=== PATIENT | male | born 1990 | race Caucasian/White ===

== ENCOUNTER 2023-09-29 04:03 | Emergency (ER) | payer OTHER ==
[2023-09-29 04:11] VITALS: BP 134/94; PULSE 80; RESP 18; TEMP 98.6; BMI 29.2
== END 2023-09-29 05:43 | disposition home or self-care (01) ==
LOC: FER 04:03
DX: S63.502A Unspecified sprain of left wrist, initial encounter (principal); Y35.811A Legal intervention involving manhandling, law enforcement official injured, initial encounter
CPT/HCPCS: 73110-TC-LT-FY; 99283-25